=== PATIENT | male | born 1980 | race Caucasian/White ===

== ENCOUNTER 2019-12-12 16:39 | Observation (INO) ==
[2019-12-12] MEDS ORDERED: LORazepam 2 MG/ML DISP.SYRIN IV ONE ×2 (16:46→18:02)
[2019-12-12 17:03] LABS: Hematocrit 35.8 % (42.0-52.0); Hemoglobin 11.9 gm/dL (13.5-18.0); Mean Cell Volume 81.5 fl (78-100); Mean Corpuscular Hemoglobin 27.1 pg (27-31); Mean Corpuscular Hgb Conc 33.2 g/dl (32-36); Mean Platelet Volume 9.4 fl (8-11.3); Neutrophil # 6.6 K/mm3 (1.3-6.0); Neutrophil % 64.3 % (42-75.0); Platelet Count 277 K/mm3 (150-450); Red Blood Count 4.39 M/mm3 (4.7-6.0); Red Cell Distribution Width 15.1 % (11.5-14.0); White Blood Count 10.3 K/mm3 (4.0-10.5)
--- NOTE | 2019-12-12 17:05 | ERNOTE ---
<Jewel Joshi - Last Filed: 12/12/19 19:36> Neuro HPI ER Record Date of Service: 12/12/19 Presenting Symptoms: weakness, confusion, difficulty standing Time Seen by Provider: 12/12/19 16:41 Source: patient, family, EMS Exam Limitations: clinical condition Immunizations: IMMUNIZATION HX Immunizations Up to Date Yes History of Influenza Vaccine Yes Hx Pneumococcal Vaccination No Allergies/Adverse Reactions: Allergies Allergy/AdvReac Type Severity Reaction Status Date / Time gabapentin AdvReac Intermediate Panic Verified 10/08/19 10:00 Attacks oxycodone [From OxyContin] AdvReac Intermediate Vomiting Verified 10/08/19 10:00 levetiracetam [From Keppra] AdvReac Verified 12/12/19 21:03 morphine AdvReac Verified 12/12/19 21:03 Home Medications: HOME MEDICATIONS Polyethylene Glycol 3350 [Miralax] 17 gm PO BID PRN 06/20/18 [Last Taken Unknown] Binimetinib [Mektovi] 45 mg PO BID 01/16/19 [Last Taken 12/11/19 22:00] Encorafenib [Braftovi] 450 mg PO DAILY 01/16/19 [Last Taken 12/11/19 22:00] duloxetine 20 mg capsule,delayed release 20 mg PO DAILY #30 cap 07/27/19 [Last Taken 12/12/19 10:00] albuterol sulfate 1.25 mg IH Q4H PRN 07/30/19 [Last Taken Unknown] levetiracetam 500 mg tablet 500 mg PO BID #60 tab 07/30/19 [Last Taken 12/11/19 22:00] ondansetron 4 mg disintegrating tablet 4 mg PO Q6H PRN #60 tab 10/15/19 [Last Taken Unknown] fluoxetine 40 mg capsule 40 mg PO DAILY #30 cap 11/08/19 [Last Taken 12/12/19 10:00] morphine 15 mg tablet,extended release 15 mg PO Q12H #60 tab 11/26/19 [Last Taken 12/12/19 10:00] morphine 30 mg tablet,extended release 30 mg PO Q12H #60 tab 11/26/19 [Last Taken 12/12/19 10:00] pantoprazole 20 mg tablet,delayed release 20 mg PO DAILY #30 tab 11/29/19 [Last Taken 12/12/19 10:00] HYDROmorphone HCL [Dilaudid] 1 - 2 mg PO Q4H PRN 12/12/19 [Last Taken Unknown] Suvorexant [Belsomra] 10 mg PO HS 12/12/19 [Last Taken 12/10/19 22:00] - History of Present Illness Narrative: sadie presents to ed with 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, states he missed his routine keppra this am, known hx of seizures 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, had brain surgery in september Onset: sudden onset, gone now Severity: moderate - Character of Deficits New weakness: Present: general (diffuse) Additional Deficits: Present: impaired speech, decrease ability to stand, decrease ability to walk, cannot walk Baseline Cognition: Present: alert, oriented x 4 Baseline Gait: Present: walks w/o assistance Associated Symptoms: Reports: altered mental status, trouble concentrating, trouble thinking, other - patient talking partially makes sense, recognizes family Review of Systems - Narrative Narrative: difificult to assecss due to confusion - Review of Systems Constitutional: Present: See HPI, weakness EYE: Present: no symptoms reported ENT: Present: no symptoms reported Respiratory: Present: no symptoms reported Cardiology: Present: no symptoms reported Gastrointestinal/Abdominal: Present: no symptoms reported Genitourinary: Present: no symptoms reported Musculoskeletal: Present: no symptoms reported Skin: Present: no symptoms reported Neurological: Present: See HPI, anxiety, dizziness/light-headedness, seizure Endocrine: Present: no symptoms reported Hematologic/Lymphatic: Present: no symptoms reported Psych: Present: no symptoms reported All Other Systems: All systems neg except as marked Medical History (Last Reviewed 11/26/19 @ 10:20 by Linh Hendricks CMA) Melanoma Metastasis to brain STAPHYLOCOCCI INFECTION SPINE History of radiation therapy Surgical History: Surgical History (Last Reviewed 11/26/19 @ 10:20 by Linh Hendricks CMA) History of back surgery History of elbow surgery History of lymph node dissection of left axilla Family History: Family History (Last Reviewed 11/26/19 @ 10:20 by Linh Hendricks CMA) Other No pertinent family history Social History: (Last Reviewed 11/26/19 @ 10:20 by Linh Hendricks CMA) Social History: Marital status: household members: spouse current occupational status: disabled Highest education level completed: some college, no degree Service: No Tobacco: Smoking Status: Current every day smoker tobacco type: cigarettes Smoking cigarettes per day: 10 Alcohol: alcohol intake: current alcohol intake frequency: a few times a month Substance Use: substance use type: marijuana Dietary Habits: caffeine: Yes caffeine comment: 2 Type: other Physical Exam - Physical Exam General Appearance: Present: moderate distress, anxious Head Exam: Present: normal inspection, no evidence of injury Eye Exam: Normal inspection: bilateral, PERRL: bilateral, EOMI: bilateral Ears, Nose, Throat: Present: normal ENT inspection, normal pharynx Neck: Present: normal inspection, nontender Respiratory: Present: no respiratory distress, normal breath sounds, no accessory muscle use, chest nontender, lungs clear Cardiovascular/Chest: Present: regular rate, rhythm, no murmur, normal peripheral pulses Gastrointestinal/Abdominal: Present: normal bowel sounds, nontender, nondistend ed, soft, no organomegaly Back Exam: Present: normal inspection, normal range of motion, no CVA tenderness, no vertebral tenderness Extremity Exam: Present: normal inspection, non-tender, normal range of motion, no edema Neurological Exam: Present: alert, oriented, normal mood/affect, no motor/sensory deficits Skin Exam: Present: normal color, warm/dry Lymphatic Exam: Present: no adenopathy Denilson Coma Scale - Assess Eye Opening: Spontaneous Motor: Obeys Commands Verbal: Confused - Total Coma Scale Total: 14 Progress - Date and Time Seen: Date and Time: 12/12/19 19:36 patient has continued to be combative , unable to obtain ct of headmultiple meds given positive for meth , opiates, and marihuana - Results and Orders Patient's Lab Results:: I have reviewed the patient's lab results. - Vital Signs Patient's Vital Signs:: I have reviewed the patient's vital signs. Vital Signs: Vital Signs 12/12/19 16:41 12/12/19 16:48 Temperature 37.2 C Pulse Rate 121 H 121 H Respiratory Rate 21 H 29 H Blood Pressure 126/94 H O2 Sat by Pulse Oximetry 95 95 - Progress/Reassessment Chief Complaint: Seizure Activity Progress:: Improved - Transfer of Care Physician Sign Out: Jewel Joshi Receiving Physician: Vandana Bruno Expected Disposition: Admit Plan - Plan Plan: to be admitted Departure Clinical Impression: Seizure, Metastatic melanoma - Departure Disposition: Still a patient Condition: Stable <Vandana Bruno - Last Filed: 12/13/19 01:21> Neuro HPI ER Record Source: family Immunizations: IMMUNIZATION HX Immunizations Up to Date Yes History of Influenza Vaccine Yes Hx Pneumococcal Vaccination No Medical History (Last Reviewed 12/12/19 @ 22:12 by Radha Guzman RN) Melanoma Metastasis to brain STAPHYLOCOCCI INFECTION SPINE History of radiation therapy Surgical History: Surgical History (Last Updated 12/12/19 @ 22:13 by Radha Guzman, RN) History of brain surgery History of back surgery History of elbow surgery History of lymph node dissection of left axilla Family History: Family History (Last Updated 12/13/19 @ 00:33 by Radha Guzman, RN) Mother No pertinent family history Depression Alcohol abuse Father Social History: (Last Reviewed 12/13/19 @ 00:33 by Radha Guzman RN) Social History: Marital status: household members: spouse current occupational status: disabled Highest education level completed: some college, no degree Service: No Tobacco: Smoking Status: Current every day smoker tobacco type: cigarettes Smoking cigarettes per day: 10 Alcohol: alcohol intake: current alcohol intake frequency: a few times a month Substance Use: substance use type: marijuana Dietary Habits: caffeine: Yes caffeine comment: 2 Type: other Physical Exam - Physical Exam General Appearance: Present: wd/wn, no apparent distress, lethargic Head Exam: Present: normal inspection Respiratory: Present: no respiratory distress Neurological Exam: Present: other - sleeping Skin Exam: Present: normal color, warm/dry Progress - Results and Orders Patient's Lab Results:: I have reviewed the patient's lab results. - Vital Signs Patient's Vital Signs:: I have reviewed the patient's vital signs. Vital Signs: Vital Signs 12/12/19 16:41 12/12/19 16:48 12/12/19 17:27 Temperature 37.2 C Pulse Rate 121 H 121 H 116 H Respiratory Rate 21 H 29 H 21 H Blood Pressure 126/94 H 122/102 H O2 Sat by Pulse Oximetry 95 95 12/12/19 19:08 12/12/19 20:05 12/12/19 20:22 Temperature Pulse Rate 97 97 101 H Respiratory Rate Blood Pressure O2 Sat by Pulse Oximetry 96 97 97 - CT/Ultrasound CT/Ultrasound Narrative: CT head: reviewed, see report, no acute changes - Progress/Reassessment Progress Note-Subjective: 12/12/19 20:00 patient sleeping, stable vitals 12/12/19 20:52 discussed with who is present now she states that patient missed keppra yesterday morning as well as this am (took last nights dose) he had two seizures at home this afternoon, fell with one of them discussed CT findings 12/12/19 20:[address] Sheppard, ayseay to admit for observation for recurrent seizure and prolonged confusion/post ictal state
[2019-12-12 17:13] LABS: Albumin * 3.7 gm/dl (3.4-5.0); Anion Gap 16.4 mmol/L (6.8-13.8); BUN/Creatinine Ratio 19.2 (9.0-21.6); Bilirubin, Total 0.9 mg/dL (0.0-1.1); Ca. Corrected For Albumin 9.2 mg/dL (8.4-10.2); Calcium * 9.3 mg/dL (7.9-10.9); Carbon Dioxide 26.4 mmol/L (24-32.6); Potassium 3.8 mmol/L (3.4-4.6); Total Protein 7.6 gm/dL (6.2-8.2)
[2019-12-12] MEDS ORDERED: MORPHINE SULFATE 4 MG/ML SYRG IV ONE (17:18)
[2019-12-12] MEDS ORDERED: diphenhydrAMINE HCL 50 MG/ML VIAL IV ONE (17:31)
[2019-12-12] MEDS ORDERED: LORazepam 2 MG/ML DISP.SYRIN IM ONE (18:19)
[2019-12-12] MEDS ORDERED: ZIPRASIDONE MESYLATE 20 MG VIAL IM ONE ×2 (18:55→19:20)
[2019-12-12 19:00] LABS: Urine Bilirubin 3 mg/dl (NEGATIVE); Urine Blood Negative /ul (NEGATIVE); Urine Ketone Negative (NEGATIVE); Urine Nitrite Negative (NEGATIVE); Urine Protein 15 mg/dL (NEGATIVE); Urine Specific Gravity >=1.030 SP.GR. (1.005-1.030); Urine Urobilinogen Normal (NORMAL); Urine pH 5.5 pH (5.0-7.0)
[2019-12-12 19:11] LABS: Urine Appearance Clear (CLEAR); Urine Bacteria None Seen; Urine Color Yellow; Urine RBC None Seen /hpf (0-5); Urine WBC 0-5 /hpf (0-5)
[2019-12-12 19:15] LABS: Cocaine Ur Negative (NEGATIVE); Urine Barbiturate Negative (NEGATIVE); Urine Benzodiazepines Negative (NEGATIVE); Urine PCP Negative (NEGATIVE)
[2019-12-12 19:16] LABS: Urine Opiates Positive (NEGATIVE); Urine THC Positive (NEGATIVE)
[2019-12-13] MEDS ORDERED: HYDROmorphone HCL 2 MG TABLET PO PRN (02:32)
[2019-12-13] MEDS ORDERED: POLYETHYLENE GLYCOL 3350 17 GM PACKET PO PRN (02:32)
[2019-12-13] MEDS ORDERED: ONDANSETRON 4 MG TAB.RAPDIS PO PRN (02:32)
[2019-12-13] MEDS ORDERED: ALBUTEROL SULFATE 2.5 MG/0.5 ML VIAL.NEB IH PRN ×2 (03:00)
[2019-12-13] MEDS ORDERED: PANTOPRAZOLE SODIUM 20 MG TABLET.DR PO SCH (07:00)
[2019-12-13] MEDS ORDERED: MORPHINE SULFATE 30 MG TABLET.SA PO SCH (09:00)
[2019-12-13] MEDS ORDERED: MORPHINE SULFATE 15 MG TABLET.SA PO SCH (09:00)
[2019-12-13] MEDS ORDERED: levETIRAcetam 500 MG TABLET PO SCH (09:00)
[2019-12-13] MEDS ORDERED: ENCORAFENIB 450 MG PO SCH (09:00)
[2019-12-13] MEDS ORDERED: FLUoxetine HCL 20 MG CAPSULE PO SCH (09:00)
[2019-12-13] MEDS ORDERED: DULoxetine HCL 20 MG CAPSULE.SA PO SCH (09:00)
[2019-12-13] MEDS ORDERED: BINIMETINIB 45 MG PO SCH (09:00)
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
[2019-12-13 12:36] VITALS: BP 102/71
[2019-12-13] MEDS ORDERED: Suvorexant [Belsomra] 10 MG PO SCH (21:00)
== END 2019-12-13 12:45 | disposition home or self-care (01) ==
LOC: ER 16:39 → MS 16:39
PROVIDERS: ADMIT Family Medicine; ATTEND Family Medicine
CPT/HCPCS: 36415; 70450; 80053; 80307; 81001; 85025; 87081; 87086; 96365; 96372; 96375; 99284; 99285; G0378